=== PATIENT | female | born 1985 | race Two or more races ===

== ENCOUNTER 2016-09-09 20:34 | Emergency (ER) | payer MEDICARE ==
[~2016-09-09] VITALS: Ht 160 cm; Wt 55.3 kg
[~2016-09-09 20:34] MED LIST: FOLI1TAB16 PO; LEVE500T6 PO
[2016-09-09] MEDS ORDERED: IV NORMAL SALINE 1000ML BAG 1,000 ML IV SCH (21:00)
[2016-09-09] MEDS ORDERED: 0.9 % SODIUM CHLORIDE 10 ML DISP.SYRIN. IV PRN (21:00)
--- NOTE | 2016-09-09 21:11 | PHYS DOC ---
Past Medical History Past Medical History: Seizure, Other Additional Past Medical Histor: seizures, brain tumor Past Surgical History: Other Additional Past Surgical Histo: Craniotomy x 2, Heart surgery (implant for seizures) Alcohol Use: Occasionally Drug Use: None Adult General Chief Complaint Chief Complaint: VAGINAL BLEEDING HPI HPI Is a pleasant 31-year-old female who is a 00 at 5 weeks by last [employer]ER presents with some spotting and bleeding that began this morning for her first . She really denies any lower abdominal pain described lower back pain which is chronic for her worse with walking. It is not new and not changed just more noticeable. She denies any UTI symptoms, denies any syncope or lightheadedness with symptoms. She denies any fevers, chills or other symptoms of vaginal discharge. Patient denies any trauma. She is on vitamins she denies any travel outside the country, he denies any URI symptoms or headache. Review of Systems Review of Systems Constitutional: Denies fever or chills [] Eyes: Denies change in visual acuity, redness, or eye pain [] HENT: Denies nasal congestion or sore throat [] Respiratory: Denies cough or shortness of breath [] Cardiovascular: No additional information not addressed in HPI [] GI: Veins of nausea without vomiting diarrhea or bloody stools or is to patient. : Denies dysuria or hematuria patient has had some passing of clots and slight bleeding Musculoskeletal: She has had some chronic back pain Integument: Denies rash or skin lesions [] Neurologic: Denies headache, focal weakness or sensory changes [] Endocrine: Denies polyuria or polydipsia [] Current Medications Current Medications Current Medications Medications (Trade) Dose Ordered Sig/Jessi Start Time Stop Time Status Last Admin Dose Admin Ondansetron HCl (Zofran) 4 mg 1X ONCE 09/09/16 21:30 09/09/16 21:31 DC Sodium Chloride (Normal Saline Flush) 10 ml QSHIFT PRN 09/09/16 21:00 Allergies Allergies Allergies Coded Allergies Type Severity Reaction Last Updated Verified No Known Drug Allergies 04/20/13 No Physical Exam Physical Exam vital Signs stable within normal limits Constitutional: Well developed, well nourished, no acute distress, non-toxic appearance. [] HENT: Normocephalic, atraumatic, bilateral external ears normal, oropharynx moist, no oral exudates, nose normal. [] Eyes: PERRLA, EOMI, conjunctiva normal, no discharge. [] Neck: Normal range of motion, no tenderness, supple, no stridor. [] Cardiovascular:Heart rate regular rhythm, no murmur [] Lungs & Thorax: Bilateral breath sounds clear to auscultation [] Abdomen: Bowel sounds normal, soft, no tenderness, no masses, no pulsatile masses. [] exam deferred. Skin: Warm, dry, no erythema, no rash. [] Back: Erector spinae tenderness palpation bilaterally both sides no midline tenderness or CVA tenderness. Extremities: No tenderness, no cyanosis, no clubbing, ROM intact, no edema. [] Neurologic: Alert and oriented X 3, normal motor function, normal sensory function, no focal deficits noted. [] Psychologic: Affect normal, judgement normal, mood normal. [] Current Patient Data Vital Signs Vital Signs Date Time Temp Pulse Resp B/P (MAP) Pulse Ox O2 Delivery O2 Flow Rate FiO2 09/09/16 21:05 98.4 72 16 112/60 (77) 99 Room Air 98.4 Lab Values Laboratory Tests Test 09/09/16 20:06 09/09/16 20:08 09/09/16 21:06 POC Urine HCG, Qualitative Hcg negative (Negative) Urine Collection Type Unknown Urine Color Red Urine Clarity Cloudy Urine pH 7.0 Urine Specific [place] 1.020 Urine Protein 100 mg/dL (NEG-TRACE) Urine Glucose (UA) Negative mg/dL (NEG) Urine Ketones (Stick) 15 mg/dL (NEG) Urine Blood Large (NEG) Urine Nitrite Negative (NEG) Urine Bilirubin Moderate (NEG) Urine Urobilinogen Dipstick 1.0 mg/dL (0.2 mg/dL) Urine Leukocyte Esterase Moderate (NEG) Urine RBC Tntc /HPF (0-2) Urine WBC 5-10 /HPF (0-4) Urine Squamous Epithelial Cells Few /LPF Urine Bacteria Few /HPF (0-FEW) White Blood Count 6.9 x10^3/uL (4.0-11.0) Red Blood Count 4.35 x10^6/uL (3.50-5.40) Hemoglobin 13.4 g/dL (12.0-15.5) Hematocrit 38.8 % (36.0-47.0) Mean Corpuscular Volume 89 fL (79-100) Mean Corpuscular Hemoglobin 31 pg (25-35) Mean Corpuscular Hemoglobin Concent 35 g/dL (31-37) Red Cell Distribution Width 13.2 % (11.5-14.5) Platelet Count 223 x10^3/uL (140-400) Neutrophils (%) (Auto) 57 % (31-73) Lymphocytes (%) (Auto) 35 % (24-48) Monocytes (%) (Auto) 6 % (0-9) Eosinophils (%) (Auto) 0 % (0-3) Basophils (%) (Auto) 1 % (0-3) Neutrophils # (Auto) 3.9 x10^3uL (1.8-7.7) Lymphocytes # (Auto) 2.4 x10^3/uL (1.0-4.8) Monocytes # (Auto) 0.4 x10^3/uL (0.0-1.1) Eosinophils # (Auto) 0.0 x10^3/uL (0.0-0.7) Basophils # (Auto) 0.1 x10^3/uL (0.0-0.2) Maternal Serum HCG Beta Subunit < 1 mIU/mL (0-5) Sodium Level 137 mmol/L (136-145) Potassium Level 5.0 mmol/L (3.5-5.1) Chloride Level 103 mmol/L (98-107) Carbon Dioxide Level 24 mmol/L (21-32) Anion Gap 10 (6-14) Blood Urea Nitrogen 8 mg/dL (7-20) Creatinine 0.9 mg/dL (0.6-1.0) Estimated GFR (Cockcroft-Gault) 73.0 BUN/Creatinine Ratio 9 (6-20) Glucose Level 94 mg/dL (70-99) Calcium Level 9.1 mg/dL (8.5-10.1) Total Bilirubin 0.4 mg/dL (0.2-1.0) Aspartate Amino Transferase (AST) 40 U/L (15-37) H Alanine Aminotransferase (ALT) 18 U/L (14-59) Alkaline Phosphatase 98 U/L (46-116) Total Protein 8.6 g/dL (6.4-8.2) H Albumin 4.0 g/dL (3.4-5.0) Albumin/Globulin Ratio 0.9 (1.0-1.7) L Laboratory Tests 09/09/16 21:06 Laboratory Tests 09/09/16 21:06 EKG EKG [] Radiology/Procedures Radiology/Procedures [] IMAGING REPORT Signed PATIENT: TALI LUDWIG ACCOUNT: [id number] : 1985 LOCATION: ER AGE: 31 SEX: F EXAM STATUS: PRE ER ORD. PHYSICIAN: SAMANTHA DUFF MD REASON: vaginal bleeding PROCEDURE: OB <14 WKS W/TV Obstetrical ultrasound HISTORY: Vaginal bleeding. 4 weeks by date. Transabdominal scan: Uterus measures 7.8 cm longitudinal by 3.9 cm AP by 4.8 cm transverse. No obvious gestational sac. Ovaries not seen. Endovaginal scan Endometrium measures 15 mm thickness. No evidence of gestational sac. Right ovary measures 3.1 cm long axis with positive blood flow. Small follicles. Left ovary measures 2.4 cm long [place] with small follicles and positive blood flow. No free fluid is identified. IMPRESSION: No sonographic findings. No evidence of gestational sac. This could be due to an early normal . Correlate with quantitative beta hCG values. Consider short-term ultrasound follow-up. Electronically signed by: Jules Shepherd MD (09/09/2016 10:09 PM) [facility] DICTATED and SIGNED BY: JULES SHEPHERD MD DATE: 09/09/16 2207 CC: SAMANTHA DUFF MD; NO PCP ~ Course & Med Decision Making Course & Med Decision Making Pertinent Labs and Imaging studies reviewed. (See chart for details) I reviewed patient's vital signs, history and physical Time is now 9:30 Patient tells me that their symptoms given during CC are improved. We reviewed labs with family at bedside. Patient's test point of care test is negative. Patient tells me that their symptoms given during CC are improved. We reviewed labs and radiology reports with patient and any family at bedside. Patient's ultrasound is completely normal with no IUP no thickening endometrial stripe. Urinalysis does demonstrate too many red blood cells to count a few bacteria and a few white blood cells. Given her back pain patient will be treated as a UTI. Laboratory Tests Test 7/22/17 20:06 09/09/16 20:08 09/09/16 21:06 Bedside Urine HCG, Qualitative Hcg negative (Negative) Urine Collection Type Unknown Urine Color Red Urine Clarity Cloudy Urine pH 7.0 Urine Specific [place] 1.020 Urine Protein 100 mg/dL (NEG-TRACE) Urine Glucose (UA) Negative mg/dL (NEG) Urine Ketones (Stick) 15 mg/dL (NEG) Urine Blood Large (NEG) Urine Nitrite Negative (NEG) Urine Bilirubin Moderate (NEG) Urine Urobilinogen Dipstick 1.0 mg/dL (0.2 mg/dL) Urine Leukocyte Esterase Moderate (NEG) Urine RBC Tntc /HPF (0-2) Urine WBC 5-10 /HPF (0-4) Urine Squamous Epithelial Cells Few /LPF Urine Bacteria Few /HPF (0-FEW) White Blood Count 6.9 x10^3/uL (4.0-11.0) Red Blood Count 4.35 x10^6/uL (3.50-5.40) Hemoglobin 13.4 g/dL (12.0-15.5) Hematocrit 38.8 % (36.0-47.0) Mean Corpuscular Volume 89 fL (79-100) Mean Corpuscular Hemoglobin 31 pg (25-35) Mean Corpuscular Hemoglobin Concent 35 g/dL (31-37) Red Cell Distribution Width 13.2 % (11.5-14.5) Platelet Count 223 x10^3/uL (140-400) Neutrophils (%) (Auto) 57 % (31-73) Lymphocytes (%) (Auto) 35 % (24-48) Monocytes (%) (Auto) 6 % (0-9) Eosinophils (%) (Auto) 0 % (0-3) Basophils (%) (Auto) 1 % (0-3) Neutrophils # (Auto) 3.9 x10^3uL (1.8-7.7) Lymphocytes # (Auto) 2.4 x10^3/uL (1.0-4.8) Monocytes # (Auto) 0.4 x10^3/uL (0.0-1.1) Eosinophils # (Auto) 0.0 x10^3/uL (0.0-0.7) Basophils # (Auto) 0.1 x10^3/uL (0.0-0.2) Maternal Serum HCG Beta Subunit < 1 mIU/mL (0-5) Sodium Level 137 mmol/L (136-145) Chloride Level 103 mmol/L (98-107) Carbon Dioxide Level 24 mmol/L (21-32) Anion Gap 10 (6-14) Blood Urea Nitrogen 8 mg/dL (7-20) Estimated GFR (Cockcroft-Gault) 73.0 BUN/Creatinine Ratio 9 (6-20) Glucose Level 94 mg/dL (70-99) Calcium Level 9.1 mg/dL (8.5-10.1) Total Bilirubin 0.4 mg/dL (0.2-1.0) Aspartate Amino Transf (AST/SGOT) 40 U/L (15-37) Alkaline Phosphatase 98 U/L (46-116) Total Protein 8.6 g/dL (6.4-8.2) Albumin 4.0 g/dL (3.4-5.0) Albumin/Globulin Ratio 0.9 (1.0-1.7) Impression, lower abdominal pain, dysfunctional uterine bleeding, UTI, chronic lower back pain. Disposition: PCP follow-up referral to [facility] for continued management of her dysfunctional uterine bleeding. Bleeding precautions given Dragon Disclaimer Dragon Disclaimer This electronic medical record was generated, in whole or in part, using a voice recognition dictation system. Departure Departure Impression: Primary Impression: Urinary tract infection Additional Impressions: Abdominal pain Chronic back pain Disposition: 01 HOME, SELF-CARE Condition: IMPROVED Referrals: NO PCP (PCP) Patient Instructions: Abdominal Pain, Urinary Tract Infection, Uterine Bleeding , Dysfunctional Additional Instructions: Please return for any new or increasing symptoms or feel any questions or concerns. 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 Scripts Ondansetron (ZOFRAN ODT) 4 Mg Tab.rapdis 4 MG PO BID Y for NAUSEA/VOMITING for 7 Days, #14 TAB Prov: SAMANTHA DUFF MD 09/09/16 Naproxen (NAPROSYN) 500 Mg Tablet 1 TAB PO BID, #14 TAB 1 Refill Prov: SAMANTHA DUFF MD 09/09/16 Hydrocodone Bit/Acetaminophen (HYDROCODONE-APAP 5-325 ) 1 Each Tablet 1 TAB PO PRN Q6HRS Y for PAIN for 5 Days, #10 TAB 0 Refills Prov: SAMANTHA DUFF MD 09/09/16 Problem Qualifiers SAMANTHA DUFF MD Sep 09, 2016 21:11
[2016-09-09 21:16] LABS: BASO # 0.1 x10^3/uL (0.0-0.2); BASO % 1 % (0-3); EOS % 0 % (0-3); HEMATOCRIT 38.8 % (36.0-47.0); HEMOGLOBIN 13.4 g/dL (12.0-15.5); LYMPH # 2.4 x10^3/uL (1.0-4.8); LYMPH % 35 % (24-48); MEAN CORPUSCULAR HEMOGLOBIN 31 pg (25-35); MEAN CORPUSCULAR HGB CONC 35 g/dL (31-37); MEAN CORPUSCULAR VOLUME 89 fL (79-100); MONO % 6 % (0-9); NEUT % 57 % (31-73); PLATELET COUNT 223 x10^3/uL (140-400); RED BLOOD COUNT 4.35 x10^6/uL (3.50-5.40); RED CELL DISTRIBUTION WIDTH 13.2 % (11.5-14.5); WHITE BLOOD COUNT 6.9 x10^3/uL (4.0-11.0)
[2016-09-09 21:18] LABS: BILIRUBIN,URINE MODERATE (NEG); GLUCOSE,URINE NEGATIVE (NEG); NITRITE,URINE NEGATIVE (NEG); PROTEIN,URINE 100 mg/dL (NEG-TRACE)
[2016-09-09 21:29] LABS: BACTERIA,URINE FEW /HPF (0-FEW); RBC,URINE TNTC /HPF (0-2); SQUAMOUS EPITHELIAL CELL,UR FEW /LPF
[2016-09-09] MEDS ORDERED: ONDANSETRON PF 4 MG/2 ML VIAL. IV ONE (21:30)
[2016-09-09 21:35] LABS: CALCIUM 9.1 mg/dL (8.5-10.1); CREATININE 0.9 mg/dL (0.6-1.0)
[2016-09-09 21:41] LABS: ALBUMIN/GLOBULIN RATIO 0.9 (1.0-1.7); TOTAL BILIRUBIN 0.4 mg/dL (0.2-1.0); TOTAL PROTEIN 8.6 g/dL (6.4-8.2)
--- NOTE | 2016-09-09 22:12 | RAD ---
Obstetrical ultrasound HISTORY: Vaginal bleeding. 4 weeks by date. Transabdominal scan: Uterus measures 7.8 cm longitudinal by 3.9 cm AP by 4.8 cm transverse. No obvious gestational sac. Ovaries not seen. Endovaginal scan Endometrium measures 15 mm thickness. No evidence of gestational sac. Right ovary measures 3.1 cm long axis with positive blood flow. Small follicles. Left ovary measures 2.4 cm long [place] with small follicles and positive blood flow. No free fluid is identified. IMPRESSION: No sonographic findings. No evidence of gestational sac. This could be due to an early normal . Correlate with quantitative beta hCG values. Consider short-term ultrasound follow-up. Electronically signed by: Jules Shepherd MD (09/09/2016 10:09 PM) [facility]
[2016-09-09] MEDS ORDERED: NAPR500T PO (22:47)
[2016-09-09] MEDS ORDERED: HYDR-2758 PO (22:47)
[2016-09-09] MEDS ORDERED: ONDA4TAB10 PO (22:47)
[2016-09-09 23:00] VITALS: BP 101/58
== END 2016-09-09 23:00 | disposition home or self-care (01) ==
LOC: ER 20:34
DX: O23.41 Unspecified infection of urinary tract in pregnancy, first trimester (principal); O26.891 Other specified pregnancy related conditions, first trimester; G89.29 Other chronic pain; M54.9 Dorsalgia, unspecified; Z3A.01 Less than 8 weeks gestation of pregnancy
CPT/HCPCS: 36415; 76801; 76817; 80053; 81001; 81025; 84702; 85027; 86900; 86901; 87086; 96360; 99285; J7030

== ENCOUNTER 2016-11-22 02:43 | Emergency (ER) | payer MEDICARE ==
[~2016-11-22] VITALS: Ht 160 cm; Wt 57.2 kg
[~2016-11-22 02:43] MED LIST changes: +HYDR-2758 PO; +NAPR500T PO; +ONDA4TAB10 PO
[2016-11-22 03:17] LABS: BASO % 0 % (0-3); EOS % 1 % (0-3); HEMATOCRIT 42.6 % (36.0-47.0); HEMOGLOBIN 14.8 g/dL (12.0-15.5); LYMPH % 34 % (24-48); MEAN CORPUSCULAR HEMOGLOBIN 31 pg (25-35); MEAN CORPUSCULAR HGB CONC 35 g/dL (31-37); MEAN CORPUSCULAR VOLUME 90 fL (79-100); MONO % 5 % (0-9); NEUT % 60 % (31-73); PLATELET COUNT 213 x10^3/uL (140-400); RED BLOOD COUNT 4.76 x10^6/uL (3.50-5.40); RED CELL DISTRIBUTION WIDTH 12.5 % (11.5-14.5); WHITE BLOOD COUNT 8.7 x10^3/uL (4.0-11.0)
[2016-11-22 03:27] LABS: CREATININE 0.6 mg/dL (0.6-1.0); GFR 116.6; POTASSIUM 3.5 mmol/L (3.5-5.1)
[2016-11-22 03:39] LABS: BILIRUBIN,URINE NEGATIVE (NEG); GLUCOSE,URINE NEGATIVE (NEG); NITRITE,URINE NEGATIVE (NEG); PROTEIN,URINE NEGATIVE (NEG-TRACE); UROBILINOGEN,URINE 0.2 mg/dL (0.2 mg/dL)
[2016-11-22 03:47] LABS: BACTERIA,URINE FEW /HPF (0-FEW); RBC,URINE OCC /HPF (0-2); SQUAMOUS EPITHELIAL CELL,UR MOD /LPF
[2016-11-22] MEDS: IV NORMAL SALINE 1000ML BAG 1,000 ML IV ONE (03:50)
--- NOTE | 2016-11-22 04:28 | PHYS DOC ---
Past Medical History Past Medical History: Seizure, Other Additional Past Medical Histor: miscarriage 09/2016; brain tumor childhood Past Surgical History: Other Additional Past Surgical Histo: brain tumor removal age 17; L arm stimulator "to take seizures away" Alcohol Use: None Drug Use: None Adult General Chief Complaint Chief Complaint: NEAR SYNCOPE HPI HPI Patient is a 31 year old female who presents with complaints of syncopal episode. Patient states she felt some chest pain and abdominal discomfort as well. There was no witnessed seizure activity. Patient is compliant with her medications. Patient had a miscarriage but that was 2 months ago and she's been doing fine since. Patient denies any vomiting, diarrhea, rashes, fevers or chills. Review of Systems Review of Systems Constitutional: Denies fever or chills [] Eyes: Denies change in visual acuity, redness, or eye pain [] HENT: Denies nasal congestion or sore throat [] Respiratory: Denies cough or shortness of breath [] Cardiovascular: No additional information not addressed in HPI [] GI: Denies nausea, vomiting, bloody stools or diarrhea. Diffuse abdominal pain : Denies dysuria or hematuria [] Musculoskeletal: Denies back pain or joint pain [] Integument: Denies rash or skin lesions [] Neurologic: Denies headache, focal weakness or sensory changes [] Current Medications Current Medications Current Medications Medications (Trade) Dose Ordered Sig/Jessi Start Time Stop Time Status Last Admin Dose Admin Sodium Chloride 1,000 ml @ 1,000 mls/hr 1X ONCE 11/22/16 03:30 11/22/16 04:29 11/22/16 03:50 1,000 MLS/HR Allergies Allergies Allergies Coded Allergies Type Severity Reaction Last Updated Verified No Known Drug Allergies 04/20/13 No Physical Exam Physical Exam Constitutional: Well developed, well nourished, mild distress, non-toxic appearance. [] HENT: Normocephalic, atraumatic,, oropharynx moist, no oral exudates, nose normal. [] Eyes: EOMI, conjunctiva normal, no discharge. [] Neck: Normal range of motion, no tenderness, supple, no stridor. No LAD, no meningeal signs, no JVD, no step-offs Cardiovascular:Heart rate regular rhythm, no murmur, normal perfusion, equal pulses Lungs & Thorax: Bilateral breath sounds clear to auscultation, no tachypnea Abdomen: Bowel sounds normal, soft, mild diffuse tenderness without guarding or rebound, no masses, no pulsatile masses. [] Skin: Warm, dry, no erythema, no rash. [] Back: No tenderness, no CVA tenderness. [] Extremities: No tenderness, no cyanosis, no DVT, ROM intact, no edema. [] Neurologic: Alert and oriented X 3, normal motor function, ambulates in the ED with normal gait and without assistance no focal deficits noted. [] Psychologic: Affect normal, judgement normal, mood normal. [] Current Patient Data Vital Signs Vital Signs Date Time Temp Pulse Resp B/P (MAP) Pulse Ox O2 Delivery O2 Flow Rate FiO2 11/22/16 03:05 99.4 66 22 108/69 (82) 98 Room Air 99.4 Lab Values Laboratory Tests Test 11/22/16 03:04 11/22/16 03:28 11/22/16 03:33 White Blood Count 8.7 x10^3/uL (4.0-11.0) Red Blood Count 4.76 x10^6/uL (3.50-5.40) Hemoglobin 14.8 g/dL (12.0-15.5) Hematocrit 42.6 % (36.0-47.0) Mean Corpuscular Volume 90 fL (79-100) Mean Corpuscular Hemoglobin 31 pg (25-35) Mean Corpuscular Hemoglobin Concent 35 g/dL (31-37) Red Cell Distribution Width 12.5 % (11.5-14.5) Platelet Count 213 x10^3/uL (140-400) Neutrophils (%) (Auto) 60 % (31-73) Lymphocytes (%) (Auto) 34 % (24-48) Monocytes (%) (Auto) 5 % (0-9) Eosinophils (%) (Auto) 1 % (0-3) Basophils (%) (Auto) 0 % (0-3) Neutrophils # (Auto) 5.2 x10^3uL (1.8-7.7) Lymphocytes # (Auto) 3.0 x10^3/uL (1.0-4.8) Monocytes # (Auto) 0.5 x10^3/uL (0.0-1.1) Eosinophils # (Auto) 0.1 x10^3/uL (0.0-0.7) Basophils # (Auto) 0.0 x10^3/uL (0.0-0.2) Sodium Level 139 mmol/L (136-145) Potassium Level 3.5 mmol/L (3.5-5.1) Chloride Level 102 mmol/L (98-107) Carbon Dioxide Level 27 mmol/L (21-32) Anion Gap 10 (6-14) Blood Urea Nitrogen 10 mg/dL (7-20) Creatinine 0.6 mg/dL (0.6-1.0) Estimated GFR (Cockcroft-Gault) 116.6 Glucose Level 89 mg/dL (70-99) Calcium Level 9.0 mg/dL (8.5-10.1) Troponin I Quantitative < 0.017 ng/mL (0.000-0.055) Urine Collection Type Unknown Urine Color Yellow Urine Clarity Cloudy Urine pH 6.0 Urine Specific [place] 1.020 Urine Protein Negative mg/dL (NEG-TRACE) Urine Glucose (UA) Negative mg/dL (NEG) Urine Ketones (Stick) Trace mg/dL (NEG) Urine Blood Negative (NEG) Urine Nitrite Negative (NEG) Urine Bilirubin Negative (NEG) Urine Urobilinogen Dipstick 0.2 mg/dL (0.2 mg/dL) Urine Leukocyte Esterase Negative (NEG) Urine RBC Occ /HPF (0-2) Urine WBC 1-4 /HPF (0-4) Urine Squamous Epithelial Cells Mod /LPF Urine Bacteria Few /HPF (0-FEW) POC Urine HCG, Qualitative Hcg negative (Negative) Laboratory Tests 11/22/16 03:04 Laboratory Tests 11/22/16 03:04 EKG EKG 0303 77 sinus rhythm no STEMI[] Radiology/Procedures Radiology/Procedures [] Course & Med Decision Making Course & Med Decision Making Pertinent Labs and Imaging studies reviewed. (See chart for details) 0429 patient is pain-free at this time, she states she feels improved. I offered the patient longer observation in the ED but she declined, she states she feels back to baseline and she was to go home. [] Dragon Disclaimer Dragon Disclaimer This electronic medical record was generated, in whole or in part, using a voice recognition dictation system. Departure Departure Impression: Primary Impression: Syncope Additional Impressions: Chest pain Abdominal pain Disposition: HOME, SELF-CARE Condition: IMPROVED Referrals: NO PCP (PCP) Please follow-up with your PCP U1 of the clinics in the list provided to you for recheck and reevaluation in 2 days. If you have a return of symptoms or new concerning symptoms develop return to the ED immediately Patient Instructions: Abdominal Pain (Nonspecific), Chest Pain (Nonspecific), [id number], Syncope Problem Qualifiers Catherine HOLT MD Nov 22, 2016 04:28
[2016-11-22 04:57] VITALS: BP 99/61
--- NOTE | 2016-11-22 11:06 | EKG ---
[facility] [address] [place] [address] Test Date: 2016-11-22 Test Time: 02:56:43 Pat Name: TALI LUDWIG Department: Room: Gender: F Environmental Services Coordinator: : 1985 Requested By: TAMIKO LUNDY Order Number: [id number] Reading MD: Measurements Intervals [place] Rate: 77 P: 59 MS: 142 QRS: 41 QRSD: 70 T: 48 QT: 360 QTc: 409 Interpretive Statements SINUS RHYTHM NORMAL ECG RI6.01 Unconfirmed report No previous ECG available for comparison
== END 2016-11-22 04:57 | disposition home or self-care (01) ==
LOC: ER 02:43
DX: R55 Syncope and collapse (principal); R07.89 Other chest pain; R10.84 Generalized abdominal pain
CPT/HCPCS: 36415; 80048; 81001; 81025; 84484; 85025; 93005; 96360; 99285; J7030

== ENCOUNTER 2018-06-12 22:54 | Emergency (ER) | payer MEDICARE ==
[~2018-06-12] VITALS: Ht 160 cm; Wt 54.4 kg
[~2018-06-12 22:54] MED LIST changes: -HYDR-2758 PO; +HYDR-2761 PO; +NAPR-683 PO; -NAPR500T PO
[2018-06-12 23:30] VITALS: BP 121/90
[2018-06-13] MEDS ORDERED: AZIT1PAC9 PO (00:11)
[2018-06-13] MEDS ORDERED: GUAI200T3 PO (00:11)
--- NOTE | 2018-06-13 00:15 | PHYS DOC ---
Past Medical History Past Medical History: Seizure, Other Additional Past Medical Histor: miscarriage 09/2016; brain tumor childhood (CHET SLATER) Past Surgical History: Other Additional Past Surgical Histo: brain tumor removal age 17; L arm stimulator "to take seizures away" (CHET SLATER) Alcohol Use: None Drug Use: None (CHET SLATER) Adult General Chief Complaint Chief Complaint: COUGH HPI HPI Patient is a 33 year old F who is here with a cough and congestion for 2 weeks since coming back from [place]. She denies fevers, sore throat or ear pain. (CHET SLATER) Review of Systems Review of Systems Constitutional: Denies fever or chills HENT: Reports nasal congestion. Denies ear pain or sore throat. Respiratory: Denies shortness of breath. Reports cough. Cardiovascular: Denies chest pain. GI: Denies abdominal pain, nausea, vomiting, bloody stools or diarrhea : Denies dysuria or hematuria Musculoskeletal: Denies back pain or joint pain Integument: Denies rash or skin lesions Neurologic: Denies headache, focal weakness or sensory changes All other systems were reviewed and found to be within normal limits, except as documented in this note. (CHET SLATER) Allergies Allergies Allergies Coded Allergies Type Severity Reaction Last Updated Verified No Known Drug Allergies 04/20/13 No (CHAI BEARD DO) Physical Exam Physical Exam Constitutional: Well developed, well nourished, no acute distress, non-toxic appearance. HENT: Normocephalic, atraumatic, bilateral external ears normal, oropharynx moist, no oral exudates. Clear nasal drainage. Neck: Normal range of motion, no tenderness, supple, no stridor. Cardiovascular:Heart rate regular rhythm, no murmur Lungs & Thorax: Bilateral breath sounds clear to auscultation. Hard cough noted. Abdomen: Bowel sounds normal, soft, no tenderness, no masses, no pulsatile m asses. Skin: Warm, dry, no erythema, no rash. Back: No tenderness, no CVA tenderness. Extremities: No tenderness, no cyanosis, no clubbing, ROM intact, no edema. Neurologic: Alert and oriented X 3, normal motor function, normal sensory function, no focal deficits noted. (CHET SLATER) Current Patient Data Vital Signs Vital Signs Date Time Temp Pulse Resp B/P (MAP) Pulse Ox O2 Delivery O2 Flow Rate FiO2 06/12/18 23:30 98.1 92 16 121/90 (100) 99 Room Air 98.1 (CHAI BEARD DO) Lab Values Laboratory Tests Test 06/12/18 23:52 POC Urine HCG, Qualitative Hcg positive (Negative) (CHAI BEARD DO) EKG EKG [] (CHET SLATER) Radiology/Procedures Radiology/Procedures Xray cancelled due to positive . (CHET SLATER) Course & Med Decision Making Course & Med Decision Making Pertinent Labs and Imaging studies reviewed. (See chart for details) Initially ordered CXR but pt's test came back positive. She reports she had a normal period last month so suspect very early . She is thrilled with the news since she has had one prior and miscarried and has been trying to get . CXR cancelled and will treat with medicine to help with cough and congestion but safe in . Pt to start vitamins and f/u with PCP or public health program manager. (CHET SLATER) Dragon Disclaimer Dragon Disclaimer This electronic medical record was generated, in whole or in part, using a voice recognition dictation system. (CHET SLATER) Departure Departure Impression: Primary Impression: Bronchitis Additional Impression: Disposition: 01 HOME, SELF-CARE Condition: STABLE Referrals: UNKNOWN PCP NAME (PCP) AMY BEY MD Patient Instructions: ABCs of , Acute Bronchitis, [id number] Additional Instructions: You were seen today for a cough and congestion. You were also found to have a positive test today. Please take vitamins and follow up with public health program manager. Scripts Guaifenesin (GUAIFENESIN) 200 Mg Tablet 200 MG PO Q4-6HRS PRN for CONGESTION MDD q, #15 TAB Prov: CHET SLATER 06/13/18 Azithromycin (AZITHROMYCIN PACKET) 1 Gm Packet 1 PACKET PO ONCE, #1 PACKET Prov: CHET SLATER 06/13/18 Attending Signature Attending Signature I have reviewed the PA/ACTIVITIES COUNSELOR's note and plan of care. I was available for consultation as needed during the patient's visit in the emergency department. I agree with the clinical impression, plan, and disposition. (CHAI BEARD DO) Problem Qualifiers CHET SLATER Jun 13, 2018 00:14 CHAI BEARD DO Jun 16, 2018 15:27
== END 2018-06-13 00:17 | disposition home or self-care (01) ==
LOC: ER 22:54
DX: Z33.1 Pregnant state, incidental (principal); J40 Bronchitis, not specified as acute or chronic
CPT/HCPCS: 81025; 99283; 99284

== ENCOUNTER 2018-06-20 22:37 | Emergency (ER) | payer MEDICARE ==
[~2018-06-20] VITALS: Ht 160 cm; Wt 59.0 kg
[~2018-06-20 22:37] MED LIST changes: +AZIT1PAC9 PO; +GUAI200T3 PO
[2018-06-20 23:10] VITALS: BP 110/79
[2018-06-21 00:28] LABS: BILIRUBIN,URINE NEGATIVE (NEG); CLARITY,URINE CLEAR; COLOR,URINE YELLOW; NITRITE,URINE NEGATIVE (NEG); PROTEIN,URINE NEGATIVE (NEG-TRACE); UROBILINOGEN,URINE 0.2 mg/dL (0.2 mg/dL)
[2018-06-21 00:35] LABS: BACTERIA,URINE FEW /HPF (0-FEW); RBC,URINE 0 /HPF (0-2); SQUAMOUS EPITHELIAL CELL,UR MOD /LPF
[2018-06-21 00:49] LABS: BASO % 0 % (0-3); EOS # 0.1 x10^3/uL (0.0-0.7); EOS % 1 % (0-3); HEMATOCRIT 37.4 % (36.0-47.0); HEMOGLOBIN 12.6 g/dL (12.0-15.5); LYMPH % 37 % (24-48); MEAN CORPUSCULAR HEMOGLOBIN 31 pg (25-35); MEAN CORPUSCULAR HGB CONC 34 g/dL (31-37); MEAN CORPUSCULAR VOLUME 90 fL (79-100); MONO # 0.5 x10^3/uL (0.0-1.1); MONO % 6 % (0-9); NEUT # 4.5 x10^3uL (1.8-7.7); NEUT % 56 % (31-73); PLATELET COUNT 232 x10^3/uL (140-400); RED BLOOD COUNT 4.14 x10^6/uL (3.50-5.40); RED CELL DISTRIBUTION WIDTH 12.7 % (11.5-14.5); WHITE BLOOD COUNT 8.1 x10^3/uL (4.0-11.0)
[2018-06-21 00:57] LABS: CALCIUM 8.2 mg/dL (8.5-10.1); CREATININE 0.6 mg/dL (0.6-1.0); GFR 115.1; POTASSIUM 3.4 mmol/L (3.5-5.1)
[2018-06-21 01:05] LABS: ALBUMIN 3.5 g/dL (3.4-5.0); ALBUMIN/GLOBULIN RATIO 0.9 (1.0-1.7); TOTAL BILIRUBIN 0.1 mg/dL (0.2-1.0); TOTAL PROTEIN 7.5 g/dL (6.4-8.2)
--- NOTE | 2018-06-21 01:26 | RAD ---
Indication:pain x 4 hrs, unsure dates TECHNIQUE: Ultrasound OB less than 14 weeks. COMPARISON: None FINDINGS: Uterus is anteverted and measures 7.8 x 5.0 x 5.0 cm dimensions. Single intrauterine gestation sac is seen. Left ovary measures 2.5 x 1.2 x 1.7 cm. Right ovary measures 2.6 x 1.7 x 2.7 cm with a hypoechoic lesion measuring 2.2 x 1.8 x 1.2 cm with thick wall. Yolk sac is seen measuring 3 mm. [place]-rump length measures 0.34 cm corresponding to gestation age of 6 weeks 0 days. Heart rate is seen in the rate of 128 bpm. No free pelvic fluid. IMPRESSION: 1. Single live viable intrauterine with estimated gestation age of 6 weeks 0 days. 2. Thick-walled right ovarian lesion likely corpus luteal cyst of . Electronically signed by: Gonzalo Lawrence DO (06/21/2018 1:23 AM) [facility]
--- NOTE | 2018-06-21 01:42 | PHYS DOC ---
Past Medical History Past Medical History: No Pertinent History Additional Past Medical Histor: miscarriage 09/2016; brain tumor childhood Past Surgical History: No Surgical History Additional Past Surgical Histo: brain tumor removal age 17; L arm stimulator "to take seizures away" Alcohol Use: None Drug Use: None Adult General Chief Complaint Chief Complaint: ABDOMINAL PAIN IN HPI HPI Patient is a 33 year old male who presents to the ED with chief complaint of pelvic cramping. Patient is female who states that she found out that she was last month. Patient denies fever, chills, nausea, vomiting, diarrhea, dysuria, chest pain, shortness of breath. Patient denies smoking, alcohol use or drug use. Patient states that she has had OB appointment in the next few weeks. Patient denies vaginal bleeding, vaginal spotting, vaginal discharge. Review of Systems Review of Systems Constitutional: Denies fever or chills [] Eyes: Denies change in visual acuity, redness, or eye pain [] HENT: Denies nasal congestion or sore throat [] Respiratory: Denies cough or shortness of breath [] Cardiovascular: No additional information not addressed in HPI [] GI: Complains of : Denies dysuria or hematuria [] Musculoskeletal: Denies back pain or joint pain [] Integument: Denies rash or skin lesions [] Neurologic: Denies headache, focal weakness or sensory changes [] Endocrine: Denies polyuria or polydipsia [] All other systems were reviewed and found to be within normal limits, except as documented in this note. Allergies Allergies Allergies Coded Allergies Type Severity Reaction Last Updated Verified No Known Drug Allergies 04/20/13 No Physical Exam Physical Exam Constitutional: Well developed, well nourished, no acute distress, non-toxic appearance. HENT: Normocephalic, atraumatic, normocaphalic Eyes: PERRL, EOMI Neck: Normal range of motion, no tenderness, supple Cardiovascular:Heart rate regular rhythm, no murmur Resp: Bilateral breath sounds clear to auscultation Abdomen: Mild pelvic tenderness Skin: Warm, dry, no erythema, no rash. Back: No tenderness, no CVA tenderness. Extremities: No tenderness, ROM intact, no edema. Neurologic: Alert and oriented X 3, normal motor function, normal sensory function, no focal deficits noted. Psychologic: Affect normal, judgement normal, mood normal. Current Patient Data Vital Signs Vital Signs Date Time Temp Pulse Resp B/P (MAP) Pulse Ox O2 Delivery O2 Flow Rate FiO2 06/20/18 23:10 97.7 78 18 110/79 (89) 100 Room Air 97.7 Lab Values Laboratory Tests Test 06/20/18 22:49 06/21/18 00:01 06/21/18 00:40 POC Urine HCG, Qualitative Hcg positive (Negative) Urine Collection Type Unknown Urine Color Yellow Urine Clarity Clear Urine pH 7.0 Urine Specific [place] 1.010 Urine Protein Negative mg/dL (NEG-TRACE) Urine Glucose (UA) Negative mg/dL (NEG) Urine Ketones (Stick) Negative mg/dL (NEG) Urine Blood Negative (NEG) Urine Nitrite Negative (NEG) Urine Bilirubin Negative (NEG) Urine Urobilinogen Dipstick 0.2 mg/dL (0.2 mg/dL) Urine Leukocyte Esterase Moderate (NEG) Urine RBC 0 /HPF (0-2) Urine WBC 5-10 /HPF (0-4) Urine Squamous Epithelial Cells Mod /LPF Urine Bacteria Few /HPF (0-FEW) White Blood Count 8.1 x10^3/uL (4.0-11.0) Red Blood Count 4.14 x10^6/uL (3.50-5.40) Hemoglobin 12.6 g/dL (12.0-15.5) Hematocrit 37.4 % (36.0-47.0) Mean Corpuscular Volume 90 fL (79-100) Mean Corpuscular Hemoglobin 31 pg (25-35) Mean Corpuscular Hemoglobin Concent 34 g/dL (31-37) Red Cell Distribution Width 12.7 % (11.5-14.5) Platelet Count 232 x10^3/uL (140-400) Neutrophils (%) (Auto) 56 % (31-73) Lymphocytes (%) (Auto) 37 % (24-48) Monocytes (%) (Auto) 6 % (0-9) Eosinophils (%) (Auto) 1 % (0-3) Basophils (%) (Auto) 0 % (0-3) Neutrophils # (Auto) 4.5 x10^3uL (1.8-7.7) Lymphocytes # (Auto) 3.0 x10^3/uL (1.0-4.8) Monocytes # (Auto) 0.5 x10^3/uL (0.0-1.1) Eosinophils # (Auto) 0.1 x10^3/uL (0.0-0.7) Basophils # (Auto) 0.0 x10^3/uL (0.0-0.2) Maternal Serum HCG Beta Subunit 98709 mIU/mL (0-5) H Sodium Level 137 mmol/L (136-145) Potassium Level 3.4 mmol/L (3.5-5.1) L Chloride Level 101 mmol/L (98-107) Carbon Dioxide Level 25 mmol/L (21-32) Anion Gap 11 (6-14) Blood Urea Nitrogen 7 mg/dL (7-20) Creatinine 0.6 mg/dL (0.6-1.0) Estimated GFR (Cockcroft-Gault) 115.1 BUN/Creatinine Ratio 12 (6-20) Glucose Level 93 mg/dL (70-99) Calcium Level 8.2 mg/dL (8.5-10.1) L Total Bilirubin 0.1 mg/dL (0.2-1.0) L Aspartate Amino Transferase (AST) 14 U/L (15-37) L Alanine Aminotransferase (ALT) 16 U/L (14-59) Alkaline Phosphatase 74 U/L (46-116) Total Protein 7.5 g/dL (6.4-8.2) Albumin 3.5 g/dL (3.4-5.0) Albumin/Globulin Ratio 0.9 (1.0-1.7) L Laboratory Tests 06/21/18 00:40 Laboratory Tests 06/21/18 00:40 EKG EKG [] Radiology/Procedures Radiology/Procedures PROCEDURE: OB <14 WKS W/TV Indication:pain x 4 hrs, unsure dates TECHNIQUE: Ultrasound OB less than 14 weeks. COMPARISON: None FINDINGS: Uterus is anteverted and measures 7.8 x 5.0 x 5.0 cm dimensions. Single intrauterine gestation sac is seen. Left ovary measures 2.5 x 1.2 x 1.7 cm. Right ovary measures 2.6 x 1.7 x 2.7 cm with a hypoechoic lesion measuring 2.2 x 1.8 x 1.2 cm with thick wall. Yolk sac is seen measuring 3 mm. [place]-rump length measures 0.34 cm corresponding to gestation age of 6 weeks 0 days. Heart rate is seen in the rate of 128 bpm. No free pelvic fluid. IMPRESSION: 1. Single live viable intrauterine with estimated gestation age of 6 weeks 0 days. 2. Thick-walled right ovarian lesion likely corpus luteal cyst of . Electronically signed by: Gonzalo Lawrence DO (06/21/2018 1:23 AM) [facility] Course & Med Decision Making Course & Med Decision Making Pertinent Labs and Imaging studies reviewed. (See chart for details) Ordered labs, UA, ultrasound. Labs are within normal limits. UA shows mild UTI. We'll treat with oral antibiotics. Ultrasound shows live intrauterine of age 6 weeks. Discussed results and plan of care with patient. Patient is instructed to follow up with PCP in one to 2 days. Appropriate discharge instructions given to patient to return to the ED or to seek immediate medical evaluation. Dragon Disclaimer Dragon Disclaimer This electronic medical record was generated, in whole or in part, using a voice recognition dictation system. Departure Departure Referrals: UNKNOWN PCP NAME (PCP) Scripts Nitrofurantoin Monohyd/M-Cryst (MACROBID 100 MG CAPSULE) 100 Mg Capsule 1 CAP PO BID, #10 CAP Prov: RIDGE PAYAN DO 06/21/18 RIDGE PAYAN DO June 21, 2018 01:42
[2018-06-21] MEDS ORDERED: NITR100C62 PO (01:45)
== END 2018-06-21 02:03 | disposition home or self-care (01) ==
LOC: ER 22:37
DX: O34.81 Maternal care for other abnormalities of pelvic organs, first trimester (principal); R10.2 Pelvic and perineal pain; Z3A.01 Less than 8 weeks gestation of pregnancy
CPT/HCPCS: 36415; 76801; 76817; 80053; 81001; 81025; 84702; 85025; 87086; 99285-25

== ENCOUNTER 2018-07-20 22:55 | Emergency (ER) | payer MEDICARE ==
[~2018-07-20 22:55] MED LIST changes: +NITR100C62 PO
== END 2018-07-20 23:39 | disposition left against medical advice (07) ==
LOC: ER 22:55
DX: O21.9 Vomiting of pregnancy, unspecified (principal); R10.9 Unspecified abdominal pain; Z3A.00 Weeks of gestation of pregnancy not specified; Z53.21 Procedure and treatment not carried out due to patient leaving prior to being seen by health care provider

== ENCOUNTER 2018-10-10 22:59 | Observation (INO) | payer MEDICARE ==
[2018-10-10] MEDS ORDERED: IV RINGERS,LACTATED 1000ML 1,000 ML IV PRN (23:15)
[2018-10-10 23:22] LABS: BILIRUBIN,URINE NEGATIVE (NEG); CLARITY,URINE CLEAR; COLOR,URINE YELLOW; NITRITE,URINE NEGATIVE (NEG); PROTEIN,URINE NEGATIVE (NEG-TRACE); UROBILINOGEN,URINE 0.2 mg/dL (0.2 mg/dL)
[2018-10-10 23:29] LABS: AMPHETAMINE/METHAMPHETAMINE NEG (NEG); BARBITURATES NEG (NEG); BENZODIAZEPINES NEG (NEG); CANNABINOIDS NEG (NEG); COCAINE NEG (NEG); METHADONE NEG (NEG); OPIATES NEG (NEG); PHENCYCLIDINE NEG (NEG)
[2018-10-10 23:34] LABS: BACTERIA,URINE 0 /HPF (0-FEW); RBC,URINE 0 /HPF (0-2); SQUAMOUS EPITHELIAL CELL,UR FEW /LPF; WBC,URINE OCC /HPF (0-4)
[2018-10-11] MEDS ORDERED: hydrOXYzine 25 MG TABLET PO ONE (00:30)
== END 2018-10-11 01:05 | disposition home or self-care (01) ==
LOC: 3 SO LND 22:59
PROVIDERS: ADMIT Obstetrics & Gynecology; ATTEND Obstetrics & Gynecology
DX: O26.892 Other specified pregnancy related conditions, second trimester (principal); R10.30 Lower abdominal pain, unspecified; Z3A.22 22 weeks gestation of pregnancy
CPT/HCPCS: 80307; 81001; G0378; G0379

== ENCOUNTER 2018-11-29 01:30 | Observation (INO) | payer MEDICARE, OTHER ==
[2018-03-20 16:46] VITALS: BP 106/60
[2018-11-29 02:05] LABS: BILIRUBIN,URINE NEGATIVE (NEG); CLARITY,URINE CLEAR; COLOR,URINE YELLOW; NITRITE,URINE NEGATIVE (NEG); PROTEIN,URINE NEGATIVE (NEG-TRACE)
[2018-11-29 02:11] LABS: BARBITURATES NEG (NEG); BENZODIAZEPINES NEG (NEG); CANNABINOIDS NEG (NEG); COCAINE NEG (NEG); METHADONE NEG (NEG); OPIATES NEG (NEG); PHENCYCLIDINE NEG (NEG)
[2018-11-29 02:13] LABS: BACTERIA,URINE FEW /HPF (0-FEW); RBC,URINE OCC /HPF (0-2); SQUAMOUS EPITHELIAL CELL,UR MOD /LPF
[2018-11-29 02:16] LABS: AMPHETAMINE/METHAMPHETAMINE NEG (NEG)
== END 2018-11-29 02:52 | disposition home or self-care (01) ==
LOC: 3 SO LND 01:30 → MERGE 01:30
PROVIDERS: ADMIT Specialist; ATTEND Specialist
DX: O46.93 Antepartum hemorrhage, unspecified, third trimester (principal); O99.89 Other specified diseases and conditions complicating pregnancy, childbirth and the puerperium; M54.9 Dorsalgia, unspecified; Z3A.30 30 weeks gestation of pregnancy
CPT/HCPCS: 80307; 81001; G0378; G0379

== ENCOUNTER 2020-07-28 22:59 | Emergency (ER) | payer MEDICARE, OTHER ==
[~2020-07-28] VITALS: Ht 160 cm; Wt 60.9 kg
[2020-07-29 00:04] LABS: BILIRUBIN,URINE NEGATIVE (NEG); CLARITY,URINE CLEAR; COLOR,URINE YELLOW; NITRITE,URINE NEGATIVE (NEG); PROTEIN,URINE NEGATIVE (NEG-TRACE); UROBILINOGEN,URINE 0.2 mg/dL (0.2 mg/dL)
[2020-07-29 00:28] LABS: BACTERIA,URINE FEW /HPF (0-FEW); RBC,URINE OCC /HPF (0-2)
--- NOTE | 2020-07-29 01:51 | RAD ---
US OB LIMITED History: Reason: vaginal bleeding, / Spl. Instructions: / History: Comparison: None. Technique: Grayscale and color Doppler imaging of the pelvis was performed using transabdominal techn ique. Findings: The uterus measures 9 x 3 x 7.9 x 6.4 cm. Nabothian cysts noted. Single intrauterine gestational sac with regular appearance. Yolk sac is identified. pole is al so identified with crown-rump length 2.8 cm. Estimated gestational age by ultrasound 9 weeks 3 days. heart rate 169 bpm. Amniotic fluid within normal limits. Estimated date of completion by ultrasound February 28, 2021. Right ovary measures 2.9 x 2.0 x 1.3 cm. Left ovary measures 2.7 x 1.5 x 1.7 cm. Normal Doppler flow to the ovaries bilaterally. No adnexal masses are seen. IMPRESSION: 1. Single intrauterine with gestational age 9 weeks 3 days and heart rate 169 bpm. Electronically signed by: Malik Glez DO (07/29/2020 1:48 AM) [place]
[2020-07-29 02:03] VITALS: BP 95/55
[2020-07-29] MEDS ORDERED: NITR100C62 PO (02:06)
--- NOTE | 2020-07-29 02:06 | ED.ADGEN ---
Past Medical History Past Medical History: Seizure, Other Additional Past Medical Histor: miscarriage 09/2016; brain tumor childhood Past Surgical History: No Surgical History Additional Past Surgical Histo: brain tumor removal age 17; L arm stimulator "to take seizures away" Smoking Status: Never Smoker Alcohol Use: None Drug Use: None General Adult EDM: Chief Complaint: ABDOMINAL PAIN IN HPI: HPI: Patient is a 35 year old at 10 weeks gestation who presents to the Emergency Room complaining of left sided pelvic pain that started earlier this afternoon. She states the pain initially was constant but now she only have a mild ache with walking. She denies any vaginal bleeding, vaginal discharge, dysuria, fever, chills, sweats, trauma. She has not had any complications with this . Her first OBGYN appointment is tomorrow. She has not had an ultrasound yet. Pain initially was sharp in nature. Review of Systems: Review of Systems: Complete ROS is negative unless otherwise documented in HPI Allergies: Allergies: Allergies Coded Allergies Type Severity Reaction Last Updated Verified No Known Drug Allergies 04/20/13 No Physical Exam: PE: General: Awake, alert, NAD. Well Nourished, well hydrated. Cooperative HEENT: Atraumatic, EOMI, PERRL, airway patent, moist oral mucosa Neck: Supple, trachea midline Respiratory: CTA bilaterally, normal effort, no wheezing/crackles CV: RRR, no murmur, cap refill <2 GI: Soft, nondistended, nontender, no masses MSK: No obvious deformities Skin: Warm, dry, intact Neuro: A&O x3, speech NL, sensory and motor grossly intact, no focal deficits Psych: Normal affect, normal mood, not suicidal or homicidal Current Patient Data: Labs: Laboratory Tests Test 07/28/20 23:02 07/28/20 23:09 07/28/20 23:35 Urine Collection Type Unknown Urine Color Yellow Urine Clarity Clear Urine pH 6.0 (<5.0-8.0) Urine Specific [place] <=1.005 (1.000-1.030) Urine Protein Negative mg/dL (NEG-TRACE) Urine Glucose (UA) Negative mg/dL (NEG) Urine Ketones (Stick) Negative mg/dL (NEG) Urine Blood Negative (NEG) Urine Nitrite Negative (NEG) Urine Bilirubin Negative (NEG) Urine Urobilinogen Dipstick 0.2 mg/dL (0.2 mg/dL) Urine Leukocyte Esterase Moderate (NEG) Urine RBC Occ /HPF (0-2) Urine WBC 5-10 /HPF (0-4) Urine Squamous Epithelial Cells Mod /LPF Urine Bacteria Few /HPF (0-FEW) Urine Mucus Slight /LPF POC Urine HCG, Qualitative Hcg positive (Negative) Maternal Serum HCG Beta Subunit 357891 mIU/mL (0-5) H Vital Signs: Vital Signs Date Time Temp Pulse Resp B/P (MAP) Pulse Ox O2 Delivery O2 Flow Rate FiO2 07/29/20 02:03 63 16 95/55 (68) 98 Room Air 07/28/20 23:30 98.1 98.1 EKG: EKG: [] Heart Score: C/O Chest Pain: N/A Risk Factors: Risk Factors: DM, Current or recent (<one month) smoker, HTN, HLP, family history of CAD, obesity. Risk Scores: Score 0 - 3: 2.5% MACE over next 6 weeks - Discharge Home Score 4 - 6: 20.3% MACE over next 6 weeks - Admit for Clinical Observation Score 7 - 10: 72.7% MACE over next 6 weeks - Early Invasive Strategies Radiology/Procedures: Radiology/Procedures: [] Course & Med Decision Making: Course & Med Decision Making Pertinent Labs and Imaging studies reviewed. (See chart for details) Patient is a 35 year-old G 4 P 2 who presents to the Emergency Room with abdominal pain. Patient has not seen passage of tissue. She has not had a formal ultrasound and does not have a confirmed IUP. UA, Rh type, OB ultrasound, test were ordered. At this time, ultrasound shows IUP. Patient does not need rhogam. I have discussed with the patient that they are likely have a threatened . We have discussed early on in we are unable to prevent miscarriages. We will discussed pelvic rest until she follows up with OBGYN. She will return to the Emergency Room if she has a large amount of bleeding, syncope, SOB. Patient's test results and vitals while in the ED were fully reviewed and discussed with the patient. Patient is stable and at this time does not need admission to the hospital. We have discussed strict return precautions and the importance of following up with their Primary Care Physician. Patient stated understanding and was given an opportunity to ask any questions. Dragon Disclaimer: Dragon Disclaimer: This electronic medical record was generated, in whole or in part, using a voice recognition dictation system. Departure Departure Impression: Primary Impression: Abdominal pain affecting Disposition: 01 HOME / SELF CARE / HOMELESS Condition: STABLE Referrals: UNKNOWN PCP NAME (PCP) Patient Instructions: Abdominal Pain During Scripts Nitrofurantoin Monohyd/M-Cryst (MACROBID 100 MG CAPSULE) 100 Mg Capsule 1 CAP PO BID for 5 Days, #10 CAP 0 Refills Prov: CRESCENCIO BURR MD 07/29/20 CRESCENCIO BURR MD Jul 29, 2020 02:06
== END 2020-07-29 02:15 | disposition home or self-care (01) ==
LOC: ER 22:59
DX: O26.891 Other specified pregnancy related conditions, first trimester (principal); R10.32 Left lower quadrant pain; Z3A.10 10 weeks gestation of pregnancy
CPT/HCPCS: 36415; 76815; 81001; 81025; 84702; 99285-25